=== PATIENT | male | born 1990 | race Caucasian/White ===

== ENCOUNTER 2022-07-18 21:13 | Emergency (ER) | payer OTHER, MEDICAID ==
[~2022-07-18] VITALS: Ht 188 cm; Wt 82.0 kg
[2022-07-19 00:04] LABS: BASOPHILS % 0.6 % (0.0-2.0); EOSINOPHILS % 0.3 % (0.0-5.0); HEMATOCRIT. 39.4 % (42.0-52.0); HEMOGLOBIN. 13.6 g/dL (14.0-18.0); LYMPHOCYTES % 18.1 % (20.0-50.0); MEAN CORPUSCULAR HEMOGLOBIN 30.9 pg (28.0-32.0); MEAN CORPUSCULAR VOLUME 89.4 fL (80.0-94.0); MEAN PLATELET VOLUME 6.6 fl (7.4-10.4); MONOCYTES % 7.5 % (2.0-8.0); NEUTROPHILS % 73.5 % (40.0-76.0); PLATELET 274 x1000/uL (130-400); RED BLOOD CELL COUNT 4.41 mill/uL (4.7-6.1); RED CELL DISTRIBUTION WIDTH 12.7 % (11.6-14.6)
[2022-07-19 00:06] LABS: CHLORIDE 102 mEq/L (98-107)
[2022-07-19 00:15] LABS: ETHANOL BLOOD < 10 mg/dL
[2022-07-19 01:29] LABS: HEPATITIS B SURFACE ANTIGEN NEGATIVE
[2022-07-19 03:30] VITALS: BP 115/73
== END 2022-07-19 03:56 | disposition home or self-care (01) ==
LOC: ER 21:13
DX: F19.10 Other psychoactive substance abuse, uncomplicated (principal); R41.82 Altered mental status, unspecified; Z91.018 Allergy to other foods
CPT/HCPCS: 36415; 80053; 80307; 80320; 80329; 85025; 86703; 99284; G0480